=== PATIENT | male | born 1990 | race Caucasian/White ===

== ENCOUNTER 2021-03-04 16:22 | Emergency (ER) | payer BC ==
[~2021-03-04] VITALS: Ht 193 cm; Wt 98.6 kg
[2021-03-04 16:36] VITALS: BP 127/87
[2021-03-04] MEDS ORDERED: CefTRIAXone 1000mg IM Kit (w/lidocaine diluent) IM STA (16:50)
[2021-03-04] MEDS ORDERED: DOXY100C76 PO (17:57)
== END 2021-03-04 18:00 | disposition home or self-care (01) ==
LOC: ER 16:23
DX: I86.1 Scrotal varices (principal); N50.812 Left testicular pain; R10.33 Periumbilical pain; Z79.2 Long term (current) use of antibiotics
CPT/HCPCS: 76870; 93976; 99284